=== PATIENT | female | born 1975 | race Caucasian/White ===

== ENCOUNTER 2019-12-26 14:34 | Emergency (ER) | payer OTHER ==
[2019-12-26 15:04] VITALS: BP 145/93
--- NOTE | 2019-12-26 15:20 | UC ---
Shortness of Breath HPI - HPI Summary HPI Summary: 44-year-old woman coming in with chief complaint of palpitation shortness breath and chest pressure. Started last night. No fevers. Patient reports she 's had a cough for about 2 weeks now. She had a negative Covid 19 and influenza tests in the last 1 week. Last evening she started feeling more shortness of breath having some chest tightness and feeling palpitations. Is also feeling somewhat lightheaded. No calf pain no history of deep venous thrombosis or blood clots. Patient has had some diarrhea the last couple of days no abdominal pain. - History of Current Complaint Chief Complaint: UCChestPain Stated Complaint: SOB/CHEST DISCOMFORT Time Seen by Provider: 12/26/19 14:36 - Allergy/Home Medications Allergies/Adverse Reactions: Allergies Allergy/AdvReac Type Severity Reaction Status Date / Time No Known Allergies Allergy Verified 01/25/18 10:09 PMH/Surg Hx/FS Hx/Imm Hx Previously Healthy: Yes - Surgical History Surgical History: None - Family History Known Family History: Positive: Non-Contributory - Social History Alcohol Use: None Substance Use Type: None Smoking Status (MU): Never Smoked Tobacco Review of Systems All Other Systems Reviewed And Are Negative: Yes Constitutional: Positive: Other - SEE HPI Skin: Positive: Negative Eyes: Positive: Negative ENT: Positive: Negative Respiratory: Positive: Shortness Of Breath, Cough, Other - SEE HPI Cardiovascular: Positive: Palpitations, Chest Pain Gastrointestinal: Positive: Diarrhea Motor: Positive: Negative Neurovascular: Positive: Negative Musculoskeletal: Positive: Negative Neurological/Mental Status: Positive: Negative Psychological: Positive: Negative Is Patient Immunocompromised?: No Physical Exam Triage Information Reviewed: Yes Appearance: No Pain Distress, Well-Nourished, Ill-Appearing - Patient appears mildly short of breath Vital Signs: Initial Vital Signs Temp 99.5 F 12/26/19 15:00 Pulse 97 12/26/19 15:00 Resp 18 12/26/19 15:00 BP 145/93 12/26/19 15:00 Pulse Ox 100 12/26/19 15:00 Vital Signs Reviewed: Yes Eye Exam: Normal Eyes: Positive: Conjunctiva Clear ENT: Negative: Nasal drainage Neck: Positive: Supple Respiratory: Positive: Lungs clear, Normal breath sounds, No respiratory distress Cardiovascular: Positive: Tachycardia Musculoskeletal: Positive: Strength Intact, ROM Intact, No Edema - No calf tenderness to palpation. Neurological: Positive: Alert Psychological: Positive: Age Appropriate Behavior Skin Exam: Normal Diagnostics - EKG Cardiac Rate: Tachycardia - AT 1443 Cardiac Rhythm: Sinus: Normal ST Segment: Other - Minimal depression of ST segments lateral and inferior leads. No PVCs. Shortness of Breath Dx - Course Course Of Treatment: I discussed the EKG with the patient. There are some mild ST depressions in the lateral leads and inferior leads. With the patient having shortness of breath palpitations chest tightness and EKG changes patient was transported to the emergency department by ambulance. - Differential Dx/Diagnosis Provider Diagnosis: Palpitations, Shortness of breath, Chest pain Discharge ED - Sign-Out/Discharge Documenting (check all that apply): Patient Departure All imaging exams completed and their final reports reviewed: No Studies - Discharge Plan Condition: Stable Disposition: HOME Patient Education Materials: Shortness of Breath (ED), Chest Pain (ED), Heart Palpitations (ED) Referrals: Josselyn Hernandez MD [Primary Care Provider] - - Billing Disposition and Condition Condition: STABLE Disposition: Home
--- OUTSIDE RECORDS SUMMARY | 2019-12-26 15:22 | XMS REPORT | Continuity of Care Document ---
:1975 External Reference #:[id number] Author Name LESA Randall Address [address] [place] [address] Care Team Providers Name Role Phone Josselyn Hernandez - Family Medicine Care Team Information Mammal Control Agent [phone] Marialuisa Evangelista PA-C - Care Team Information Mammal Control Agent [phone] Gastroenterology Problems Active Problems Provider Date Phlebitis and thrombophlebitis Zackery Maloney M.D. Onset: 05/29/2013 Social History Type Date Description Comments Sex Unknown Tobacco Use Start: Unknown Never Smoked Cigarettes Allergies, Adverse Reactions, Alerts Description No Known Drug Allergies Medications Description No Active Medications Immunizations CPT Code Status Date Vaccine Lot # [id number] Given 02/03/2018 Tdap Tetanus, W Pertussis [id number] Given 07/06/2017 Influenza Vac, Quadrivalent, Slit Virus, Im Vital Signs Date Vital Result Comment 02/03/2018 1:02pm BP Systolic 118 mmHg BP Diastolic 74 mmHg Heart Rate 80 /min Body Temperature 99.2 F Respiratory Rate 16 /min Height 68 inches 5'8" Weight 170.00 lb BMI (Body Mass Index) 25.8 kg/m2 01/20/2018 11:18am BP Systolic 124 mmHg BP Diastolic 80 mmHg Heart Rate 80 /min Body Temperature 98.4 F Respiratory Rate 16 /min Height 68 inches 5'8" Weight 173.00 lb BMI (Body Mass Index) 26.3 kg/m2 Results Description No Information Available Procedures Date Code Description Status 01/19/2018 [id number] Mammogram Completed Medical Devices Description No Information Available Encounters Description No Information Available Assessments Date Code Description Provider 12/19/2019 R05 Cough LESA Randall Plan of Treatment No Information Available Functional Status Description No Information Available Mental Status Description No Information Available Referrals Description No Information Available
--- OUTSIDE RECORDS SUMMARY | 2019-12-26 15:22 | XMS REPORT | Continuity of Care Document ---
:1975 External Reference #:[id number] Author Name [facility] (transmitted by agent of provider Brent Nagel) Address [address] [place] [address] Problems Description No Information Available Social History Type Date Description Comments Sex Unknown Allergies, Adverse Reactions, Alerts Description No Information Available Medications Description No Information Available Immunizations Description No Information Available Vital Signs Description No Information Available Results Description No Information Available Procedures Description No Information Available Medical Devices Description No Information Available Encounters Description No Information Available Assessments Description No Information Available Plan of Treatment No Information Available Functional Status Description No Information Available Mental Status Description No Information Available Referrals Description No Information Available
== END 2019-12-26 15:40 | disposition short-term general hospital (02) ==
LOC: UCEAST 14:34
DX: R00.2 Palpitations (principal); R06.02 Shortness of breath; R07.89 Other chest pain; R00.0 Tachycardia, unspecified
CPT/HCPCS: 93005; 99213; G0463

== ENCOUNTER 2019-12-26 15:59 | Emergency (ER) | payer OTHER ==
[2019-12-26] MEDS ORDERED: NS 0.9% 1000 ML** 1,000 ML IV ONE (16:05)
[2019-12-26 16:23] LABS: ABS Lymphocytes 0.7 10^3/ul (1.0-4.8); ABS Monocytes 0.3 10^3/ul (0-0.8); ABS Neutrophils 4.1 10^3/ul (1.5-7.7); Eosinophil % 0.2 %; Hematocrit 43 % (35-47); Lymphocyte % 14.4 %; Mean Corpuscular HGB Conc 35 g/dL (31-36); Mean Corpuscular Hemoglobin 30 pg (27-31); Mean Corpuscular Volume 87 fL (80-97); Mean Platelet Volume 9.1 fL (7.4-10.4); Platelet Count 242 10^3/uL (150-450); Red Blood Count 4.98 10^6 /uL (3.70-4.87); Red Cell Distribution Width 13 % (10-15); White Blood Count 5.2 10^3/uL (3.5-10.8)
[2019-12-26 16:44] LABS: ALT 11 U/L (7-52); AST 16 U/L (13-39); Albumin 4.8 g/dL (3.2-5.2); Albumin/Globulin Ratio 1.6 (1-3); Alkaline Phosphatase 48 U/L (34-104); Anion Gap 10 mmol/L (2-11); BUN/Creatinine Ratio 15.7 (8-20); Blood Urea Nitrogen 13 mg/dL (6-24); C Reactive Protein < 1.00 mg/L (<8.01); CO2 Carbon Dioxide 25 mmol/L (22-32); Calcium 10.2 mg/dL (8.6-10.3); Chloride 104 mmol/L (101-111); EGFR African American 90.4 (>60); EGFR Non-African American 74.7 (>60); Glucose 138 mg/dL (70-100); Potassium 3.7 mmol/L (3.5-5.0); Sodium 139 mmol/L (135-145); Total Protein 7.8 g/dL (6.4-8.9)
[2019-12-26 16:50] LABS: HCG Pregnancy 1.22 mIU/mL
[2019-12-26 17:12] LABS: Urine Appearance Clear; Urine Bilirubin Negative (Negative); Urine Blood Negative (Negative); Urine Color Straw; Urine Glucose Negative (Negative); Urine Ketones Trace (Negative); Urine Nitrite Negative (Negative); Urine Protein Negative (Negative); Urine Specific Gravity 1.005 (1.010-1.030); Urine Urobilinogen Negative (Negative)
[2019-12-26 17:17] LABS: Urine Bacteria Absent (Absent); Urine Red Blood Cell Trace(0-2/hpf) (Absent); Urine Squamous Epithelial Cell Present (Absent); Urine White Blood Cell Trace(0-5/hpf) (Absent)
--- NOTE | 2019-12-26 18:06 | ED ---
Progress - EKG/XRAY/CT Xray Comments: no active disease Course/Dx - Course Course Of Treatment: 44 year old female presents with cough, sob and palipations for past couple weeks. She was tested neg for covid. lab work wnl. tylertent was signed out by tessie pending chest xray. chest xray no pneumonia. discussed likely viral. told to follow up with primary. patient understand and agrees with plan - Diagnoses Provider Diagnoses: Bronchitis Discharge ED - Sign-Out/Discharge Documenting (check all that apply): Patient Departure, Receiving Sign-Out Receiving patient FROM: Tessie Lamb - Discharge Plan Condition: Good Disposition: HOME Patient Education Materials: Acute Bronchitis (ED) Referrals: Josselyn Hernandez MD [Primary Care Provider] - Additional Instructions: drink plenty of fluids Take tyenlol every 6 hours as needed for pain Follow up with primary within 5 days Return to ED if develop any new or worsening symptoms - Billing Disposition and Condition Condition: GOOD Disposition: Home
[2019-12-26 18:45] VITALS: BP 124/81
== END 2019-12-26 18:46 | disposition home or self-care (01) ==
LOC: ED 15:59
DX: J40 Bronchitis, not specified as acute or chronic (principal); R06.02 Shortness of breath
CPT/HCPCS: 36415; 71046; 80053; 81003; 81015; 83605; 83690; 83735; 84484; 84702; 85025; 86140; 87086; 93005; 96360; 99283

== ENCOUNTER 2020-01-10 20:42 | Emergency (ER) | payer OTHER ==
[2020-01-10] MEDS ORDERED: NS 0.9% 1000 ML** 1,000 ML IV ONE ×2 (20:57→22:24)
--- NOTE | 2020-01-10 21:05 | ED ---
Asthma - History of Current Complaint Stated Complaint: CHEST PAIN PER PT Hx Last Menstrual Period: 12/19/19 - Allergy/Home Medications Allergies/Adverse Reactions: Allergies Allergy/AdvReac Type Severity Reaction Status Date / Time No Known Allergies Allergy Verified 01/25/18 10:09 Home Medications: Home Medications Albuterol HFA INHALER* [Ventolin HFA Inhaler*] 2 puff INH Q4H PRN 12/26/19 [ History Confirmed 12/26/19] PMH/Surg Hx/FS Hx/Imm Hx Endocrine/Hematology History: Denies: Hx Diabetes Cardiovascular History: Denies: Hx Hypertension Respiratory History: Denies: Other Respiratory Problems/Disorders History: Denies: Hx Dialysis, Hx Renal Disease - Family History Known Family History: Positive: Non-Contributory - Social History Alcohol Use: None Substance Use Type: Reports: None Smoking Status (MU): Never Smoked Tobacco Review of Systems Positive: Chest Pain All Other Systems Reviewed And Are Negative: Yes Physical Exam - Summary Physical Exam Summary: Constitutional: Well-developed, Well-nourished, Alert. (-) Distressed Skin: Warm, Dry HENT: Normocephalic; Atraumatic Eyes: Conjunctiva normal Neck: Musculoskeletal ROM normal neck. (-) JVD, (-) Stridor, (-) Tracheal deviation Cardio: Rhythm regular, rate normal, Heart sounds normal; Intact distal pulses; Radial pulses are 2+ and symmetric. (-) Murmur Pulmonary/Chest wall: Effort normal. (-) Respiratory distress, (-) Wheezes, (-) Rales Abd: Soft, (-) tenderness, (-) Distension, (-) Guarding, (-) Rebound Musculoskeletal: (-) Edema Lymph: (-) Cervical adenopathy Neuro: Alert, Oriented x3 Psych: Mood and affect Normal Triage Information Reviewed: Yes Vital Signs Reviewed: Yes Procedures - Sedation Patient Received Moderate/Deep Sedation with Procedure: No Discharge ED - Discharge Plan Referrals: Josselyn Hernandez MD [Primary Care Provider] - - Attestation Statements Document Initiated by Scribe: Yes Documenting Scribe: Malika Greer Provider For Whom Scribe is Documenting (Include Credential): Aureliano Garcia MD Scribe Attestation: Malika Emanuel, scribed for Aureliano Garcia MD on 01/10/20 at 2056.
[2020-01-10 21:26] LABS: ABS Lymphocytes 1.1 10^3/ul (1.0-4.8); ABS Monocytes 0.4 10^3/ul (0-0.8); Eosinophil % 0.4 %; Hematocrit 40 % (35-47); Lymphocyte % 14.3 %; Mean Corpuscular HGB Conc 35 g/dL (31-36); Mean Corpuscular Hemoglobin 30 pg (27-31); Mean Corpuscular Volume 87 fL (80-97); Mean Platelet Volume 9.2 fL (7.4-10.4); Platelet Count 206 10^3/uL (150-450); Red Blood Count 4.62 10^6 /uL (3.70-4.87); Red Cell Distribution Width 13 % (10-15); White Blood Count 7.5 10^3/uL (3.5-10.8)
--- OUTSIDE RECORDS SUMMARY | 2020-01-10 21:38 | XMS REPORT | Continuity of Care Document ---
:1975 External Reference #:[id number] Author Name Becki Hickey, DINING ROOM ATTENDANT [employer] Address [address] [place] [address] Care Team Providers Name Role Phone Josselyn Hernandez - Family Medicine Care Team Information Litigation Counsel Marialuisa Evangelista PA-C - Care Team Information Litigation Counsel [phone] Gastroenterology Problems Active Problems Provider Date Phlebitis and thrombophlebitis Zackery Maloney M.D. Onset: 05/29/2013 Social History Type Date Description Comments Sex Unknown Tobacco Use Start: Unknown Never Smoked Cigarettes Allergies, Adverse Reactions, Alerts Description No Known Drug Allergies Medications Active Medications SIG Qnty Indications Ordering Provider Date Flovent HFA 2 puff twice a 12gm Becki Hickey, 12/27/2019 110mcg/Act day rinse mouth [employer] Aerosol after use Proair HFA 2 puffs every 4 25.5gm [facility], 12/21/2019 108(90Base) hours as needed [employer]ING RO[employer]END[employer] mcg/Act Aerosol Immunizations CPT Code Status Date Vaccine Lot # [id number] Given 02/03/2018 Tdap Tetanus, W Pertussis [id number] Given 07/06/2017 Influenza Vac, Quadrivalent, Slit Virus, [...] BMI (Body Mass Index) 26.3 kg/m2 Results Test Acquired Date Facility Test Result H/L Range Note CBC Auto Diff [place] [facility] [place] Blood 5.2 10^3/uL Normal 3.5-10.8 Count Red Blood Count 4.98 10^6/uL High 3.70-4.87 Hemoglobin 15.0 g/dL Normal 12.0-16.0 Hematocrit 43 % Normal 35-47 Mean Corpuscular Volume 87 fL Normal 80-97 Mean Corpuscular Hemoglobin 30 pg Normal 27-31 Mean Corpuscular HGB Conc 35 g/dL Normal 31-36 Red Cell Distribution Width 13 % Normal 10-15 Platelet Count 242 10^3/uL Normal 150-450 Mean Platelet Volume 9.1 fL Normal 7.4-10.4 Abs Neutrophils 4.1 10^3/uL Normal 1.5-7.7 Abs Lymphocytes 0.7 10^3/uL Low 1.0-4.8 Abs Monocytes 0.3 10^3/uL Normal 0-0.8 Abs Eosinophils 0.0 10^3/uL Normal 0-0.6 Abs Basophils 0.0 10^3/uL Normal 0-0.2 Abs Nucleated RBC 0.0 10^3/uL Granulocyte % 78.8 % Lymphocyte % 14.4 % Monocyte % 6.2 % Eosinophil % 0.2 % Basophil % 0.4 % Nucleated Red Blood Cells % 0.0 Laboratory test finding [place]26/[place] [facility] [place] Lactic Acid 1.4 mmol/L Normal 0.5- 2.0 1 Comp Metabolic Panel 12[place]26/[place] [facility] [place] Sodium 139 mmol/L Normal 135-145 Potassium 3.7 mmol/L Normal 3.5-5.0 Chloride 104 mmol/L Normal 101-111 Co2 Carbon Dioxide 25 mmol/L Normal 22-32 Anion Gap 10 mmol/L Normal 2-11 Glucose 138 mg/dL High 70-100 Blood Urea Nitrogen 13 mg/dL Normal 6-24 Creatinine 0.83 mg/dL Normal 0.51-0.95 BUN/Creatinine Ratio 15.7 Normal 8-20 Calcium 10.2 mg/dL Normal 8.6-10.3 Total Protein 7.8 g/dL Normal 6.4-8.9 Albumin 4.8 g/dL Normal 3.2-5.2 Globulin 3.0 g/dL Normal 2-4 Albumin/Globulin Ratio 1.6 Normal 1-3 Total Bilirubin 0.90 mg/dL Normal 0.2-1.0 Alkaline Phosphatase 48 U/L Normal 34-104 Alt 11 U/L Normal 7-52 Ast 16 U/L Normal 13-39 Egfr Non- 74.7 >60 Egfr 90.4 >60 2 Laboratory test finding 12/26/2019 [facility] [place] Magnesium 2.0 mg/dL Normal 1.9- 2.7 Lipase 12 U/L Normal 11.0-82.0 C Reactive Protein < 1.00 mg/L Normal <8.01 Troponin-I (TnI) 0.00 ng/mL <0.03 3 HCG 1.22 mIU/mL 4 Urinalysis Profile 12/26/2019 [facility] [place] Urine Color Straw Urine Appearance Clear Urine Specific [place] 1.005 Low 1.010-1.030 Urine pH 8.0 Normal 5-9 Urine Urobilinogen Negative Negative Urine Ketones Trace Abnormal Negative Urine Protein Negative Negative Urine Leukocytes 1+ Abnormal Negative Urine Blood Negative Negative Urine Nitrite Negative Negative Urine Bilirubin Negative Negative Urine Glucose Negative Negative Urine White Blood Cell Trace(0-5/hpf) Absent Urine Red Blood Cell Trace(0-2/hpf) Absent Urine Bacteria Absent Absent Urine Squamous Epithelial Cell Present Abnormal Absent Urine Culture And 12/26/2019 [facility] [place] Culture SEE RESULT BELOW 5 Sensitivities Influenza A & B Request 12/21/2019 [facility] [place] Flu AB Disclaimer (SEE NOTE) 6 Influenza A Molecular Negative Negative Influenza B Molecular Negative Negative 7 Laboratory test finding 12/21/2019 [facility] [place] Covid19, PCR Undetected Undetected 8 1 [facility] Severe Sepsis and Septic Shock Management Bundle Measure requires all lactic acids initially measuring >2.0 mmol/L be repeated. 2 Because ethnic data is not always readily available, this report includes an eGFR for both -Americans and non- Americans. The National Kidney Disease Education Program (NKDEP) does not endorse the use of the MDRD equation for patients that are not between the ages of 18 and 70, are , have extremes of body size, muscle mass, or nutritional status, or are non- or non-. According to the National Kidney Foundation, irrespective of diagnosis, the stage of the disease is based on the level of kidney function: Stage Description GFR(mL/min/1.73 m(2)) 1 Kidney damage with normal or decreased GFR 90 2 Kidney damage with mild decrease in GFR 60-89 3 Moderate decrease in GFR 30-59 4 Severe decrease in GFR 15-29 5 Kidney failure <15 (or dialysis) 3 Troponin-I testing on Plasma Separator Tubes (PST) has a known false positive rate of 0.20-0.40%. All positive troponins reflex immediately to secondary confirmatory testing. Using the [employer] DxI 800 Access Immunoassay systems, the 99th percentile upper reference limit was demonstrated to be < 0.03 ng/mL. 4 <5.0 Negative 5.0 - 25.0 Indeterminate (Repeat testing recommended after 72 hours) >25.0 Positive Perimenopausal women can display HCG levels of up to 20 mIU/mL 5 SEE RESULT BELOW Name: BLANCA WORRELL : [address]: Derek Murray Acct: [id number] Unit: [id number] AGE: 44 Location: ED Re12/26/19 SEX: F Status: DEP ER SPEC: [id number] GAIL: 12/26/19 [facility] DR: Tessie COLE REQ: [id number] RECD: 12/26/19 STATUS: CONNER LAMA DR: Derek Watson MD _ SOURCE: URINE [facility]: ORDERED: Urine Culture Procedure Result Reported Site Urine Culture Final 12/27/19- 1411 ML No Growth (<1,000 CFU/mL) * ML - Main Lab . END OF REPORT DEPARTMENT OF PATHOLOGY, [address] [place] [address] Amadou Hays M.D. Director [facility] # [id number] 6 Suboptimal collection technique may reduce sensitivity of test. Refer to the [facility] Test Catalog for collection information: [email or web address].[email or web address] As with all diagnostic procedures, the laboratory results obtained should be used in conjunction with other clinical information available to the physician, including confirmation by another method, as applicable. 7 Photography Colorist: [id number] SARS-CoV-2 RNA is not detected. ADDITIONAL INFORMATION Testing was performed using the preeti SARS-CoV-2 assay ([employer] on the preeti 6800 System. Fact sheets for this Emergency Use Authorization (EUA) assay can be found at the following links: For Healthcare Providers: https://www.fda.gov/media/199511/download For Patients: https://www.fda.gov/media/845499/download Test Performed by: [facility] [address] [place] [address] Assistant Customer Service Manager: Deniz Gamez M.D. Ph.D.; CLIA# [id number] Procedures Date Code Description Status 01/19/2018 [id number] Mammogram Completed Medical Devices Description No Information Available Encounters Type Date Location Provider Dx Diagnosis Office Visit 12/19/2019 1:00p Main Office Becki Hickey, DINING ROOM ATTENDANT [employer] R05 Cough Assessments Date Code Description Provider 12/21/2019 R05 Cough Becki Hickey, DINING ROOM ATTENDANT [employer] 12/21/2019 J06.9 Acute upper respiratory infection, Becki Hickey, DINING ROOM ATTENDANT [employer] unspecified 12/21/2019 R19.7 Diarrhea, unspecified Becki Hickey, DINING ROOM ATTENDANT [employer] 12/19/2019 R05 Cough Becki Hickey, DINING ROOM ATTENDANT [employer] Plan of Treatment 12/21/2019 - Becki Hickey, [id number] CoughNew Labs:Influenza A & B AB, Ordered: 12/21/1912Qvkot80, PCR, Ordered: 12/21/19Comments:conservative measures discussedadvised albuterol advised COVID vgoidcaC14.9 Acute upper respiratory infection, [id number] Diarrhea, unspecifiedAllNew Medication:Proair HFA 108(90 Base) mcg/Act - 2 puffs every 4 hours as needed Functional Status Description No Information Available Mental Status Description No Information Available Referrals Description No Information Available
[2020-01-10 21:42] LABS: ALT 11 U/L (7-52); AST 14 U/L (13-39); Albumin 4.5 g/dL (3.2-5.2); Albumin/Globulin Ratio 1.6 (1-3); Alkaline Phosphatase 53 U/L (34-104); Anion Gap 9 mmol/L (2-11); BUN/Creatinine Ratio 15.1 (8-20); Blood Urea Nitrogen 14 mg/dL (6-24); C Reactive Protein < 1.00 mg/L (<8.01); CO2 Carbon Dioxide 26 mmol/L (22-32); Calcium 9.8 mg/dL (8.6-10.3); Chloride 105 mmol/L (101-111); EGFR African American 79.2 (>60); EGFR Non-African American 65.5 (>60); Globulin 2.8 g/dL (2-4); Glucose 176 mg/dL (70-100); Magnesium 1.9 mg/dL (1.9-2.7); Potassium 3.7 mmol/L (3.5-5.0); Sodium 140 mmol/L (135-145); Total Protein 7.3 g/dL (6.4-8.9)
--- NOTE | 2020-01-10 21:44 | ED ---
Palpitations / Dysrhythmia - HPI Summary HPI Summary: 44 y/o F presenting to [facility] for evaluation of palpitations, nausea, and shaking onset around 1700 tonight. She reports she has been suffering from cough and SOB with associated mild diarrhea for the last 3 weeks. Patient tested for COVID19 on 12/21/2019 with negative results. Today, she developed heart racing palpitations, nausea, and shaking for the last 5 hours with associated CP and SOB. She was seen here roughly two weeks ago for a similar complaint. Symptoms now rated 8/10 in severity. Denies any fevers, diaphoresis, sore throat, or abdominal pain. No unilateral calf pain or swelling, no hemoptysis. No hx blood clot. No recent travel. No hormone use. No cardiac or respiratory hx. No stress test ever. No PMHx, no surgeries. Nonsmoker, occasional EtOH but none recently, no recreation drug use. Medications reviewed. No known allergies. - History of Current Complaint Chief Complaint: EDShortnessOfBreath Time Seen by Provider: 01/10/20 20:43 Hx Obtained From: Patient Onset/Duration: Lasting Hours - 5, Still Present Severity Initially: Moderate Severity Currently: Moderate Character: Fast Aggravating: Nothing Alleviating: Nothing Associated Signs & Symptoms: Chest Pain, Shortness of Breath, Nausea - Allergy/Home Medications Allergies/Adverse Reactions: Allergies Allergy/AdvReac Type Severity Reaction Status Date / Time No Known Allergies Allergy Verified 01/10/20 21:03 Home Medications: Home Medications Metoprolol Tartrate TAB* [Lopressor TAB*] 25 mg PO BID 14 Days #28 tab 01/10/20 [Rx] PMH/Surg Hx/FS Hx/Imm Hx Endocrine/Hematology History: Denies: Hx Diabetes Cardiovascular History: Denies: Hx Hypertension Respiratory History: Denies: Other Respiratory Problems/Disorders History: Denies: Hx Dialysis, Hx Renal Disease - Surgical History Surgical History: None Surgery Procedure, Year, and Place: none Infectious Disease History: No Infectious Disease History: Denies: Traveled Outside the [place] in Last 30 Days - Family History Known Family History: Negative: Diabetes, Renal Disease - Social History Alcohol Use: Occasionally Hx Substance Use: No Substance Use Type: Reports: None Hx Tobacco Use: No Smoking Status (MU): Never Smoked Tobacco Review of Systems Negative: Fever, Skin Diaphoresis Negative: Sore Throat Positive: Palpitations, Chest Pain Positive: Shortness Of Breath, Cough. Negative: Other - hemoptysis Positive: Diarrhea - mild, Nausea. Negative: Abdominal Pain Negative: Edema - or pain in either calf All Other Systems Reviewed And Are Negative: Yes Physical Exam - Summary Physical Exam Summary: Constitutional: Well-developed, Well-nourished, Alert. Appears anxious. (-) Distressed Skin: Warm, Dry HENT: Normocephalic; Atraumatic Eyes: Conjunctiva normal Neck: Musculoskeletal ROM normal neck. (-) JVD, (-) Stridor, (-) Tracheal deviation Cardio: Rhythm regular, rate tachycardic in 120s BPM, Heart sounds normal; Intact distal pulses; Radial pulses are 2+ and symmetric. (-) Murmur Pulmonary/Chest wall: Effort normal. (-) Respiratory distress, (-) Wheezes, (-) Rales Abd: Soft, (-) tenderness, (-) Distension, (-) Guarding, (-) Rebound Musculoskeletal: (-) Edema Lymph: (-) Cervical adenopathy Neuro: Alert, Oriented x3 Psych: Mood and affect Normal Triage Information Reviewed: Yes Vital Signs On Initial Exam: Initial Vitals Temp Pulse Resp BP Pulse Ox 98.9 F 114 19 153/99 100 01/10/20 21:01 01/10/20 21:01 01/10/20 21:01 01/10/20 21:01 01/10/20 21:01 Vital Signs Reviewed: Yes Procedures - Sedation Patient Received Moderate/Deep Sedation with Procedure: No Diagnostics - Vital Signs Vital Signs Temp Pulse Resp BP Pulse Ox 01/10/20 21:01 98.9 F 114 19 153/99 100 - Laboratory Lab Results: Lab Results 01/10/20 01/10/20 Range/Units 21:12 21:12 WBC 7.5 (3.5-10.8) 10^3/uL RBC 4.62 (3.70-4.87) 10^6 /uL Hgb 14.0 (12.0-16.0) g/dL Hct 40 (35-47) % MCV 87 (80-97) fL MCH 30 (27-31) pg MCHC 35 (31-36) g/dL RDW 13 (10-15) % Plt Count 206 (150-450) 10^3/uL MPV 9.2 (7.4-10.4) fL Neut % (Auto) 79.5 % Lymph % (Auto) 14.3 % [place] % (Auto) 5.3 % Eos % (Auto) 0.4 % Baso % (Auto) 0.5 % Absolute Neuts (auto) 6.0 (1.5-7.7) 10^3/ul Absolute Lymphs (auto) 1.1 (1.0-4.8) 10^3/ul Absolute Monos (auto) 0.4 (0-0.8) 10^3/ul Absolute Eos (auto) 0.0 (0-0.6) 10^3/ul Absolute Basos (auto) 0.0 (0-0.2) 10^3/ul Absolute Nucleated RBC 0.0 10^3/ul Nucleated RBC % 0.0 D-Dimer, Quantitative < 200 (Less Than 230) ng/mL Result Diagrams: 01/10/20 21:12 01/10/20 21:12 Lab Statement: Any lab studies that have been ordered have been reviewed, and results considered in the medical decision making process. - Radiology CXR Radiology Interpretation Completed By: ED Physician Summary of Radiographic Findings: No acute process. Dr. Garcia has reviewed and interpreted this imaging scan, pending official read. - EKG 2122 Cardiac Rate: Tachycardia - 113 BPM EKG Rhythm: Sinus Tachycardia Summary of EKG Findings: Sinus tachycardia at rate of 113 BPM. No obvious ischemic changes. Dr. Garcia has reviewed and interpreted this EKG. Re-Evaluation - Re-Evaluation First Eval Re-Evaluation Time: 22:20 Change: Unchanged Comment: Patient still feels like heart is racing, tingling in hands and feet. HR while in room anywhere from 105-125 BPM. Second Eval Re-Evaluation Time: 23:20 Change: Improved Comment: Patient states she is feeling better after IV Ativan. We discussed starting Metoprolol here in the ED vs as outpatient. Will start in the ED. Multiple HRs less than 100 prior to d/c. Patient agreeable with plan. Course/Dx - Course Course Of Treatment: Patient is here with palpitations and chest pain. Patient has had 3 weeks of generalized symptoms including diarrhea, cough, fatigue. Patient was tested for Covid 19 on 12/20 which was negative. Patient was feeling better since Tuesday but got worse today. Patient was tachycardic upon arrival and did appear anxious. Patient will perform including a d-dimer which was negative for any acute abnormality. Patient has no evidence of thyroid disease, sepsis, PE, but foot abnormality, anemia. Patient was given 2 L of IV fluid, 1 mg of Ativan with improvement in her heart rate. Patient's sinus tachycardia, patient was started on metoprolol for rate control. Patient was retested for Covid 19 given her symptoms - Diagnoses Provider Diagnoses: Sinus tachycardia, Palpitations Discharge ED - Sign-Out/Discharge Documenting (check all that apply): Patient Departure - Patient will be discharged home. - Discharge Plan Condition: Stable Disposition: HOME Prescriptions: Metoprolol Tartrate TAB* [Lopressor TAB*] 25 mg PO BID 14 Days #28 tab Patient Education Materials: Heart Palpitations (ED), Tachycardia (ED) Forms: COVID-19 Tested & Isolation Referrals: Josselyn Hernandez MD [Primary Care Provider] - 2 Days Additional Instructions: Follow up with Dr. Hernandez to discuss your tachycardia. Take your medicine as prescribed. Stop taking the medicine if you feel dizzy or like you are going to pass out. Return to the emergency department for any severe trouble breathing, chest pain, or any other concerning symptoms. You were seen in the emergency department for coronavirus rule out. The department of health will contact you within 24 hours. Due to the pandemic, you should stay in your house and self quarantine. See the separate quarantine paper for further instructions. You should wear a mask if you're outside of your personal room. We encourage handwashing as well as limited contact with other people including the elderly and the immunocompromised. If any studies were not completed at the time of discharge you will be called with the relevant results. Return to emergency department for severe trouble breathing, worsening or concerning symptoms. It was a pleasure taking care of you today. - Billing Disposition and Condition Condition: STABLE Disposition: Home - Attestation Statements Document Initiated by Scribe: Yes Documenting Scribe: Malika Greer Provider For Whom Napoleon is Documenting (Include Credential): Aureliano Garcia MD Scribe Attestation: Malika Emanuel, scribed for Aureliano Garcia MD on 01/11/20 at 0258. Scribe Documentation Reviewed: Yes Provider Attestation: The documentation as recorded by the scribe, Malika Greer accurately reflects the service I personally performed and the decisions made by me, Aureliano Garcia MD Status of Scribe Document: Viewed
[2020-01-10 21:49] LABS: HCG Pregnancy 0.67 mIU/mL
[2020-01-10] MEDS ORDERED: LORazepam INJ* 2 MG/ML 1 ML VIAL IV PUSH ONE (22:26)
[2020-01-10] MEDS ORDERED: Lorazepam PYXIS KEY PRN (22:26)
[2020-01-10] MEDS ORDERED: Metoprolol Tartrate TAB* 25 MG PO ONE (23:29)
[2020-01-10 23:56] VITALS: BP 134/77
== END 2020-01-10 23:55 | disposition home or self-care (01) ==
LOC: ED 20:42
DX: R00.0 Tachycardia, unspecified (principal); R00.2 Palpitations; R07.9 Chest pain, unspecified; R06.02 Shortness of breath; R11.0 Nausea; R60.0 Localized edema; R94.31 Abnormal electrocardiogram [ECG] [EKG]
CPT/HCPCS: 36415; 71045; 80053; 83605; 83735; 84443; 84484; 84702; 85025; 85379; 86140; 87635; 93005; 96361; 96374; 99284; G2023; J2060